=== PATIENT | female | born 1955 | race Caucasian/White ===

== ENCOUNTER 2019-01-05 19:05 | Emergency (ER) | payer MEDICARE ==
[2019-01-05 19:30] VITALS: BP 113/78
--- NOTE | 2019-01-05 19:37 | UC ---
Skin Complaint HPI - HPI Summary HPI Summary: 63 yo female presents with tick bite. She tells me that earlier today she noticed some itching to her mid back. She looked in the mirror and saw a large rash with a tick attached. She is unable to remove the tick herself - prompting her visit to . She has no pain, fevers, headaches, or myalgias. Thinks the tick may have been attached about 1 day. - History of Current Complaint Chief Complaint: UCSkin Time Seen by Provider: 01/05/19 19:31 Stated Complaint: TICK Hx Obtained From: Patient Onset/Duration: Sudden Onset Current Severity: None Pain Intensity: 0 - Allergy/Home Medications Allergies/Adverse Reactions: Allergies Allergy/AdvReac Type Severity Reaction Status Date / Time Sulfa (Sulfonamide Allergy Unknown Verified 01/05/19 19:31 Antibiotics) Reaction Details Home Medications: Home Medications Docusate Sodium [Stool Softener] 1 tab PO DAILY 01/05/19 [History Confirmed ] Famotidine TAB* [Pepcid 20 MG TAB*] 20 mg PO DAILY 01/05/19 [History Confirmed 01/05/19] Multivitamin [Multivitamins] 1 tab PO DAILY 01/05/19 [History Confirmed 01/05/19 ] PMH/Surg Hx/FS Hx/Imm Hx GI/ History: Gastroesophageal Reflux - Surgical History Surgical History: Yes Surgery Procedure, Year, and Place: tonsillectomy - Family History Known Family History: Positive: Hypertension - Social History Lives: With Family Alcohol Use: Rare Substance Use Type: None Smoking Status (MU): Never Smoked Tobacco Review of Systems All Other Systems Reviewed And Are Negative: Yes Constitutional: Positive: Negative Skin: Positive: Rash - with tick bite on back Respiratory: Positive: Negative Cardiovascular: Positive: Negative Neurovascular: Positive: Negative Musculoskeletal: Positive: Negative Neurological: Positive: Negative Psychological: Positive: Negative Physical Exam - Summary Physical Exam Summary: GENERAL: NAD. WDWN. No pain distress. SKIN: Mid upper back: Large (~12.0cm diameter) bull's eye rash with central tick bite. Embedded tick is moderately engorged. NTTP. No warmth. NECK: Supple. Nontender. No lymphadenopathy. CHEST: No accessory muscle use. Breathing comfortably and in no distress. CV: Pulses intact. Cap refill <2seconds NEURO: Alert. PSYCH: Age appropriate behavior. Triage Information Reviewed: Yes Vital Signs: Initial Vital Signs Temp 98.2 F 01/05/19 19:25 Pulse 72 01/05/19 19:25 Resp 16 01/05/19 19:25 BP 113/78 01/05/19 19:25 Pulse Ox 99 01/05/19 19:25 Vital Signs Reviewed: Yes Course/Dx - Course Course Of Treatment: Tick removed without difficulty with tick twisters. Denzel classic bull's eye rash to the area. Given engorged tick and bull's eye rash, I suspect the tick has been attached longer than 1 day as pt suspects. Will treat with 3 weeks of doxycycline for lyme disease. - Diagnoses Provider Diagnosis: Tick bite, Lyme disease Discharge - Sign-Out/Discharge Documenting (check all that apply): Patient Departure All imaging exams completed and their final reports reviewed: No Studies - Discharge Plan Condition: Stable Disposition: HOME Prescriptions: DOXYcycline CAP(*) [DOXYcycline 100MG CAP(*)] 100 mg PO BID #42 cap Patient Education Materials: Lyme Disease (ED), Tick Bite (ED) Referrals: Sarah Davis MD [Primary Care Provider] - Additional Instructions: If you develop a fever, shortness of breath, chest pain, new or worsening symptoms - please call your PCP or go to the ED immediately. You have the classic "Bull's Eye" Rash where the tick bite you. Please take the full course of antibiotics to treat any lyme disease transmission the tick caused If you develop any of the following, please see your physician promptly: (1) Fever, chills, or generalized malaise associated with a headache. (2) A red round area at the site of the bite (or elsewhere) (3) Joint pain, joint swelling or generalized weakness. (4) Redness, swelling, or drainage at the site of the bite. - Billing Disposition and Condition Condition: STABLE Disposition: Home - Attestation Statements Provider Attestation: Per institutional requirements, I have reviewed the chart, however, I was not consulted specifically or made aware of this patient by the midlevel provider. I did not personally evaluate, interact with , or disposition this patient.
== END 2019-01-05 19:44 | disposition home or self-care (01) ==
LOC: UCEAST 19:05
DX: T63.481A Toxic effect of venom of other arthropod, accidental (unintentional), initial encounter (principal); Y92.9 Unspecified place or not applicable; A69.20 Lyme disease, unspecified; Z88.2 Allergy status to sulfonamides
CPT/HCPCS: 99212; G0463